=== PATIENT | male | born 1975 | race Caucasian/White ===

== ENCOUNTER 2016-06-26 10:30 | Emergency (ER) | payer SELFPAY ==
[~2016-06-26] VITALS: Ht 185.4 cm; Wt 109.1 kg
[~2016-06-26 10:30] MED LIST: NAPROXEN500 MG PO; NOHOMEMEDS; NORCO 5/3251 TABLET PO
[2016-06-26] MEDS ORDERED: MOTRIN800 MG PO (12:58)
[2016-06-26] MEDS ORDERED: PREDNISONE20 MG PO (12:58)
[2016-06-26 13:08] VITALS: BP 116/79
== END 2016-06-26 13:09 | disposition home or self-care (01) ==
LOC: EME 10:30
DX: M54.5 Low back pain (principal); F17.200 Nicotine dependence, unspecified, uncomplicated
CPT/HCPCS: 72100; 99281; 99283; J1885; J7512

== ENCOUNTER 2017-10-01 07:18 | Emergency (ER) | payer OTHER ==
[~2017-10-01] VITALS: Ht 185.4 cm; Wt 100.0 kg
[~2017-10-01 07:18] MED LIST changes: +MOTRIN800 MG PO; +PREDNISONE20 MG PO
[2017-10-01 07:50] LABS: BASOPHIL COUNT 0.1 K/uL (0-0.1); EOSINOPHIL (%) 1.4 % (0-5); EOSINOPHIL COUNT 0.1 K/uL (0-0.3); HEMATOCRIT 44.2 % (38.0-50.0); HEMOGLOBIN 15.6 G/DL (12.5-16.6); IMMATURE GRANULOCYTE (%) 0.3 % (0.0-0.7); LYMPHOCYTE (%) 24.6 % (15-42); LYMPHOCYTE COUNT 1.5 K/uL (1.0-2.8); MCH 31.1 PG (29.0-34.0); MCHC 35.3 G/DL (30.0-36.0); MONOCYTE (%) 6.7 % (3-12); MONOCYTE COUNT 0.4 K/uL (0-0.8); NEUTROPHIL COUNT 4.1 K/uL (1.8-6.4); PLATELET COUNT 203 K/uL (156-360); RBC DIS.WIDTH-CV 12.6 % (11.8-14.6); RBC DIS.WIDTH-SD 40.3 % (39-53); RED BLOOD COUNT 5.02 M/uL (4.00-5.50); WHITE BLOOD COUNT 6.2 K/uL (4.1-10.2)
[2017-10-01 08:11] LABS: APPEARANCE CLEAR ((CLEAR)); BILIRUBIN NEGATIVE; BLOOD NEGATIVE; COLOR YELLOW ((YELLOW)); GLUCOSE (STRIP) NEGATIVE; KETONES NEGATIVE; LEUKOCYTES NEGATIVE; NITRITE NEGATIVE; PROTEIN (STRIP) NEGATIVE; SPECIFIC GRAVITY 1.023 (1.000-1.030)
[2017-10-01 08:19] LABS: CHLORIDE 105 MEQ/L (99-109); POTASSIUM 3.8 MEQ/L (3.7-5.4); SODIUM 139 MEQ/L (136-147)
[2017-10-01 08:35] LABS: AMPHETAMINE NEGATIVE (500 ng/mL); BARBITURATES NEGATIVE (200 ng/mL); BENZODIAZEPINES NEGATIVE (150 ng/mL); BUPRENORPHINE NEGATIVE (10 ng/mL); COCAINE NEGATIVE (150 ng/mL); METHADONE NEGATIVE (200 ng/mL); METHAMPHETAMINE NEGATIVE (500 ng/mL); OPIATES (MORPHINE) NEGATIVE (100 ng/mL); OXYCODONE NEGATIVE (100 ng/mL); PHENCYCLIDINE NEGATIVE (25 ng/mL); PROPOXYPHENE NEGATIVE (300 ng/mL); THC CANNABINOIDS NEGATIVE (50 ng/mL); TRICYCLIC ANTIDEPRESSANTS NEGATIVE (300 ng/mL)
[2017-10-01 08:40] LABS: GFR ESTIMATE (CALCULATED) > 59 mL/min/ (58.99-99999); GLUCOSE 105 mg/dL (70-99); SERUM ETHYL ALCOHOL < 10 mg/dL; UREA NITROGEN (BUN) 14 mg/dL (9-23)
[2017-10-01 09:50] VITALS: BP 152/90
== END 2017-10-01 09:40 | disposition home or self-care (01) ==
LOC: EME 07:18
PROVIDERS: Emergency Medicine
DX: F41.9 Anxiety disorder, unspecified (principal); F32.9 Major depressive disorder, single episode, unspecified; F43.23 Adjustment disorder with mixed anxiety and depressed mood; F17.200 Nicotine dependence, unspecified, uncomplicated
CPT/HCPCS: 80048; 81003; 85025; 90839; 99281; 99284; G0480

== ENCOUNTER 2017-10-03 12:01 | Inpatient (IN) | payer OTHER ==
[~2017-10-03] VITALS: Ht 185.4 cm; Wt 100.0 kg
[2017-10-03 14:27] LABS: HEMATOCRIT 43.9 % (38.0-50.0); HEMOGLOBIN 15.6 G/DL (12.5-16.6); MCH 31.4 PG (29.0-34.0); MCHC 35.5 G/DL (30.0-36.0); MCV 88.3 FL (86-99); PLATELET COUNT 205 K/uL (156-360); RBC DIS.WIDTH-CV 12.6 % (11.8-14.6); RBC DIS.WIDTH-SD 40.7 % (39-53); RED BLOOD COUNT 4.97 M/uL (4.00-5.50); WHITE BLOOD COUNT 6.7 K/uL (4.1-10.2)
[2017-10-03 14:35] LABS: ALBUMIN 4.5 g/dL (3.2-4.8); CHLORIDE 106 mEq/L (99-109); POTASSIUM 4.1 mEq/L (3.7-5.4)
[2017-10-03 14:36] LABS: SODIUM 142 mEq/L (136-147)
[2017-10-03 14:38] LABS: GLUCOSE 92 mg/dL (70-99); TOTAL PROTEIN 7.6 g/dL (6.4-8.3)
[2017-10-03 14:40] LABS: TOTAL BILIRUBIN 0.7 mg/dL (0.0-1.0)
[2017-10-03 14:41] LABS: ALKALINE PHOSPHATASE 61 IU/L (3-129); SERUM ETHYL ALCOHOL < 10 mg/dL
[2017-10-03 14:42] LABS: GFR ESTIMATE (CALCULATED) > 59 mL/min/ (58.99-99999)
[2017-10-03 14:43] LABS: AST (GOT) 16 IU/L (2-34); UREA NITROGEN (BUN) 9 mg/dL (9-23)
[2017-10-03 14:44] LABS: ALT (GPT) 15 IU/L (3-49)
[2017-10-03 16:06] LABS: APPEARANCE CLEAR ((CLEAR)); BILIRUBIN NEGATIVE; BLOOD NEGATIVE; COLOR YELLOW ((YELLOW)); GLUCOSE (STRIP) NEGATIVE; KETONES NEGATIVE; LEUKOCYTES NEGATIVE; NITRITE NEGATIVE; PROTEIN (STRIP) NEGATIVE; SPECIFIC GRAVITY 1.008 (1.000-1.030); UROBILINOGEN 0.2 MG/DL (0.2-1.0)
[2017-10-03] MEDS ORDERED: XANAX0.5 MG PO (16:20)
[2017-10-03 16:22] VITALS: BP 136/91
[2017-10-03 16:25] VITALS: BP 136/91
[2017-10-03 16:49] LABS: AMPHETAMINE NEGATIVE (500 ng/mL); BARBITURATES NEGATIVE (200 ng/mL); BENZODIAZEPINES NEGATIVE (150 ng/mL); BUPRENORPHINE NEGATIVE (10 ng/mL); COCAINE NEGATIVE (150 ng/mL); METHADONE NEGATIVE (200 ng/mL); METHAMPHETAMINE NEGATIVE (500 ng/mL); OPIATES (MORPHINE) NEGATIVE (100 ng/mL); OXYCODONE NEGATIVE (100 ng/mL); PHENCYCLIDINE NEGATIVE (25 ng/mL); PROPOXYPHENE NEGATIVE (300 ng/mL); THC CANNABINOIDS NEGATIVE (50 ng/mL); TRICYCLIC ANTIDEPRESSANTS NEGATIVE (300 ng/mL)
[2017-10-04 07:47] VITALS: BP 101/60
[2017-10-04 15:48] VITALS: BP 125/77
[2017-10-05 07:49] VITALS: BP 104/60
[2017-10-05] MEDS ORDERED: MIRTAZAPINE15 MG PO (09:10)
== END 2017-10-05 11:03 | disposition home or self-care (01) | DRG 882 ==
LOC: EME 12:01 → EDOF 14:05 → 1WEST 14:05 → ENRESERV 15:58 → 1WEST 16:17
PROVIDERS: Emergency Medicine
DX: F43.22 Adjustment disorder with anxiety (principal); R45.851 Suicidal ideations; F32.9 Major depressive disorder, single episode, unspecified; F60.2 Antisocial personality disorder; G47.00 Insomnia, unspecified
CPT/HCPCS: 80053; 81003; 85027; 90839; 97150 GO; 97167 GO; 99281; 99285; G0480

== ENCOUNTER 2017-10-06 02:02 | Emergency (ER) | payer OTHER ==
[~2017-10-06] VITALS: Ht 182.9 cm; Wt 110.0 kg
[~2017-10-06 02:02] MED LIST changes: +MIRTAZAPINE15 MG PO; +XANAX0.5 MG PO
[2017-10-06 02:58] LABS: HEMOGLOBIN 16.7 G/DL (12.5-16.6); MCH 31.6 PG (29.0-34.0); MCHC 35.5 G/DL (30.0-36.0); PLATELET COUNT 205 K/uL (156-360); RBC DIS.WIDTH-SD 41.8 % (39-53); RED BLOOD COUNT 5.28 M/uL (4.00-5.50); WHITE BLOOD COUNT 7.4 K/uL (4.1-10.2)
[2017-10-06 03:12] LABS: CHLORIDE 106 mEq/L (99-109); SODIUM 144 mEq/L (136-147)
[2017-10-06 03:13] LABS: GLUCOSE 89 mg/dL (70-99)
[2017-10-06 03:17] LABS: GFR ESTIMATE (CALCULATED) > 59 mL/min/ (58.99-99999); SERUM ETHYL ALCOHOL 75 mg/dL
[2017-10-06 03:18] LABS: UREA NITROGEN (BUN) 6 mg/dL (9-23)
[2017-10-06 03:57] VITALS: BP 130/86
== END 2017-10-06 03:57 | disposition home or self-care (01) ==
LOC: EME 02:02
PROVIDERS: Emergency Medicine Emergency Medical Services
DX: F43.23 Adjustment disorder with mixed anxiety and depressed mood (principal); F32.9 Major depressive disorder, single episode, unspecified; F19.10 Other psychoactive substance abuse, uncomplicated
CPT/HCPCS: 80048; 85027; 90837; 99281; 99284; G0480

== ENCOUNTER 2017-10-25 21:50 | Emergency (ER) | payer OTHER ==
[~2017-10-25] VITALS: Ht 185.4 cm; Wt 100.3 kg
[2017-10-25 22:03] VITALS: BP 00/00
[2017-10-25 22:24] LABS: HEMATOCRIT 47.7 % (38.0-50.0); HEMOGLOBIN 16.6 G/DL (12.5-16.6); MCH 31.6 PG (29.0-34.0); MCHC 34.8 G/DL (30.0-36.0); MCV 90.9 FL (86-99); RBC DIS.WIDTH-CV 13.2 % (11.8-14.6); RED BLOOD COUNT 5.25 M/uL (4.00-5.50); WHITE BLOOD COUNT 8.4 K/uL (4.1-10.2)
[2017-10-25 22:25] LABS: APPEARANCE CLEAR ((CLEAR)); BILIRUBIN NEGATIVE; BLOOD NEGATIVE; COLOR YELLOW ((YELLOW)); GLUCOSE (STRIP) NEGATIVE; KETONES NEGATIVE; LEUKOCYTES NEGATIVE; NITRITE NEGATIVE; PROTEIN (STRIP) NEGATIVE; SPECIFIC GRAVITY 1.011 (1.000-1.030); UCUL ADDED? NO; UROBILINOGEN 0.2 MG/DL (0.2-1.0)
[2017-10-25 22:39] LABS: CHLORIDE 107 mEq/L (99-109); POTASSIUM 4.1 mEq/L (3.7-5.4); SODIUM 142 mEq/L (136-147)
[2017-10-25 22:41] LABS: GLUCOSE 84 mg/dL (70-99)
[2017-10-25 22:45] LABS: CREATININE 0.9 mg/dL (0.6-1.3); GFR ESTIMATE (CALCULATED) > 59 mL/min/ (58.99-99999); UREA NITROGEN (BUN) 12 mg/dL (9-23)
[2017-10-25 23:36] LABS: PLAT.SUFFICIENCY ADEQUATE; PLATELET COUNT 182 K/uL (156-360)
== END 2017-10-26 00:05 | disposition left against medical advice (07) ==
LOC: EME 21:50
DX: R11.10 Vomiting, unspecified (principal); R51 Headache; Z53.21 Procedure and treatment not carried out due to patient leaving prior to being seen by health care provider
CPT/HCPCS: 80048; 81003; 85027